=== PATIENT | female | born 1940 | race Caucasian/White ===

== ENCOUNTER → 2020-03-26 | Outpatient (CLI) | payer MEDICARE, OTHER ==
[2020-03-26 11:20] LABS: BASOPHILS ABSOLUTE AUTO 0.04 K/mm3 (0.00-0.23); BASOPHILS PERCENT AUTO 1 % (0-2); EOSINOPHILS ABSOLUTE AUTO 0.03 K/mm3 (0.00-0.68); EOSINOPHILS PERCENT AUTO 0 % (0-6); Hematocrit 43.5 % (33.0-51.0); Hemoglobin 14.5 g/dL (11.5-16.0); IMMATURE GRAN ABSOLUTE AUTO 0.02 K/mm3 (0.00-0.10); IMMATURE GRAN PERCENT AUTO 0 % (0-1); LYMPHOCYTES ABSOLUTE AUTO 1.34 K/mm3 (0.84-5.20); LYMPHOCYTES PERCENT AUTO 17 % (21-46); MONOCYTES ABSOLUTE AUTO 0.55 K/mm3 (0.16-1.47); MONOCYTES PERCENT AUTO 7 % (4-13); Mean Corpuscular HGB Conc 33.3 g/dL (31.5-36.5); Mean Corpuscular Volume 93 fL (80-100); Mean Platelet Volume 11.5 fL (9.1-12.4); NEUTROPHILS ABSOLUTE AUTO 5.91 K/mm3 (1.96-9.15); NEUTROPHILS PERCENT AUTO 75 % (41-73); Platelet Count 245 K/mm3 (150-400); RDW Coefficient Variation 13.2 % (11.7-14.2); RDW Standard Deviation 44.9 fL (35.1-46.3); Red Blood Cell Count 4.68 M/mm3 (3.80-5.20); White Blood Cell Count 7.89 K/mm3 (4.00-11.30)
[2020-03-26 11:33] LABS: Alanine Aminotransfer (ALT/SGP 11 U/L (12-78); Albumin, Blood 4.2 g/dL (3.4-5.0); Albumin/Globulin Ratio 1.3 (0.8-1.8); Alk Phos 80 U/L (40-126); Amylase, Blood 55 U/L (25-115); Anion Gap 13 mmol/L (6-16); Aspartate Aminotrans (AST/SGOT 14 U/L (12-37); Bilirubin, Total 0.7 mg/dL (0.1-1.0); Blood Urea Nitrogen 13 mg/dL (8-24); Bun/Creatinine Ratio 17.8 (12.0-20.0); CO2, Blood 23 mmol/L (21-32); Calcium, Blood 9.4 mg/dL (8.5-10.1); Chloride, Blood 105 mmol/L (98-108); Creatinine, Blood 0.73 mg/dL (0.40-1.00); Globulin, Blood 3.2 g/dL (2.2-4.0); Glomerular Filtration Rate >60 (60-); Glucose, Blood 106 mg/dL (70-99); Sodium, Blood 141 mmol/L (136-145); Total Protein, Blood 7.4 g/dL (6.4-8.2)
[2020-03-26 19:04] LABS: Adenovirus F 40/41 Not Detected (NOT DETECT); Astrovirus Not Detected (NOT DETECT); Campylobacter Sp Not Detected (NOT DETECT); Cryptosporidium Not Detected (NOT DETECT); Cyclospora Cayetanensis Not Detected (NOT DETECT); E. Coli O157 Not Detected (NOT DETECT); Entamoeba Histolytica Not Detected (NOT DETECT); Enteroaggregative E. coli-EAEC Not Detected (NOT DETECT); Enteropathogenic E. coli-EPEC Not Detected (NOT DETECT); Enterotoxigenic E. coli-ETEC Not Detected (NOT DETECT); Giardia Lamblia Not Detected (NOT DETECT); Norovirus GI/GII Not Detected (NOT DETECT); Plesiomonas Shigelloides Not Detected (NOT DETECT); Rotavirus A Not Detected (NOT DETECT); Salmonella Sp Not Detected (NOT DETECT); Sapovirus Not Detected (NOT DETECT); Shiga Toxin-prod E. coli-STEC Not Detected (NOT DETECT); Shigella/Enteroin E. coli-EIEC Not Detected (NOT DETECT); Vibrio Cholerae Not Detected (NOT DETECT); Vibrio Sp Not Detected (NOT DETECT); Yersinia Enterocolitica Not Detected (NOT DETECT)
== END | disposition home or self-care (01) ==
LOC: LAB EV 11:14 → LAB SHORT 11:14
PROVIDERS: General Practice
DX: R10.84 Generalized abdominal pain (principal)
CPT/HCPCS: 0097U; 80053; 82150; 83690; 85025

== ENCOUNTER 2020-04-03 19:35 | Inpatient (IN) | payer MEDICARE, OTHER ==
[~2020-04-03] VITALS: Ht 154.9 cm; Wt 42.3 kg
[2020-04-03 20:25] LABS: BASOPHILS ABSOLUTE AUTO 0.03 K/mm3 (0.00-0.23); BASOPHILS PERCENT AUTO 0 % (0-2); EOSINOPHILS ABSOLUTE AUTO 0.01 K/mm3 (0.00-0.68); EOSINOPHILS PERCENT AUTO 0 % (0-6); Hematocrit 46.9 % (33.0-51.0); Hemoglobin 15.6 g/dL (11.5-16.0); IMMATURE GRAN ABSOLUTE AUTO 0.04 K/mm3 (0.00-0.10); IMMATURE GRAN PERCENT AUTO 0 % (0-1); LYMPHOCYTES ABSOLUTE AUTO 1.41 K/mm3 (0.84-5.20); LYMPHOCYTES PERCENT AUTO 12 % (21-46); MONOCYTES ABSOLUTE AUTO 0.24 K/mm3 (0.16-1.47); MONOCYTES PERCENT AUTO 2 % (4-13); Mean Corpuscular HGB Conc 33.3 g/dL (31.5-36.5); Mean Corpuscular Volume 93 fL (80-100); NEUTROPHILS ABSOLUTE AUTO 9.94 K/mm3 (1.96-9.15); NEUTROPHILS PERCENT AUTO 85 % (41-73); Platelet Count 211 K/mm3 (150-400); RDW Coefficient Variation 13.2 % (11.7-14.2); RDW Standard Deviation 44.7 fL (35.1-46.3); Red Blood Cell Count 5.03 M/mm3 (3.80-5.20); White Blood Cell Count 11.67 K/mm3 (4.00-11.30)
[2020-04-03 20:44] LABS: Alanine Aminotransfer (ALT/SGP 19 U/L (12-78); Albumin, Blood 4.3 g/dL (3.4-5.0); Albumin/Globulin Ratio 1.1 (0.8-1.8); Alk Phos 82 U/L (50-136); Anion Gap 8 mmol/L (6-16); Aspartate Aminotrans (AST/SGOT 16 U/L (12-37); Bilirubin, Total 0.6 mg/dL (0.1-1.0); Blood Urea Nitrogen 16 mg/dL (8-24); Bun/Creatinine Ratio 31.3 (12.0-20.0); CO2, Blood 24 mmol/L (21-32); Calcium, Blood 9.8 mg/dL (8.5-10.1); Chloride, Blood 106 mmol/L (98-108); Creatinine, Blood 0.51 mg/dL (0.40-1.00); Globulin, Blood 3.8 g/dL (2.2-4.0); Glomerular Filtration Rate >60 (60-); Glucose, Blood 164 mg/dL (70-99); Potassium, Blood 3.8 mmol/L (3.5-5.5); Sodium, Blood 138 mmol/L (136-145); Total Protein, Blood 8.1 g/dL (6.4-8.2)
[2020-04-04 00:57] LABS: Source, Urine Clean Catch
[2020-04-04 01:05] LABS: Bilirubin, Urine Neg (Neg); Blood, Urine 1+ (Neg); Glucose Qualitative, Urine Neg (Neg); Ketones, Urine 3+ (Neg); Leukocyte Esterase, Urine Neg (Neg); Nitrite, Urine Neg (Neg); Protein, Urine 1+ (Neg); Urobilinogen, Urine NORM (Normal)
[2020-04-04 01:08] LABS: Appearance, Urine Clear (Clear); Color, Urine Yellow (P-Yellow)
[2020-04-04 01:13] LABS: Bacteria Few /hpf; Red Blood Cells, Urine 0-2 /hpf (0-2); Squamous Epithelial Cells Not Seen /hpf (Few); White Blood Cells, Urine 0-2 /hpf (0-5)
--- NOTE | 2020-04-04 07:30 | NUR ---
ASSUMED CARE: PT RESTING IN BED, AWAKE AND TALKING TO STAFF. NO ACUTE NEEDS OR CONCERNS AT THIS TIME.
[2020-04-04 08:09] LABS: BASOPHILS ABSOLUTE AUTO 0.02 K/mm3 (0.00-0.23); BASOPHILS PERCENT AUTO 0 % (0-2); EOSINOPHILS ABSOLUTE AUTO 0.03 K/mm3 (0.00-0.68); EOSINOPHILS PERCENT AUTO 0 % (0-6); Hematocrit 37.9 % (33.0-51.0); Hemoglobin 12.4 g/dL (11.5-16.0); IMMATURE GRAN ABSOLUTE AUTO 0.01 K/mm3 (0.00-0.10); IMMATURE GRAN PERCENT AUTO 0 % (0-1); LYMPHOCYTES ABSOLUTE AUTO 1.48 K/mm3 (0.84-5.20); LYMPHOCYTES PERCENT AUTO 21 % (21-46); MONOCYTES PERCENT AUTO 7 % (4-13); Mean Corpuscular HGB 30.9 pg (26.0-34.0); Mean Corpuscular HGB Conc 32.7 g/dL (31.5-36.5); Mean Corpuscular Volume 95 fL (80-100); Mean Platelet Volume 12.1 fL (9.1-12.4); NEUTROPHILS ABSOLUTE AUTO 5.15 K/mm3 (1.96-9.15); NEUTROPHILS PERCENT AUTO 72 % (41-73); Platelet Count 171 K/mm3 (150-400); RDW Coefficient Variation 13.1 % (11.7-14.2); RDW Standard Deviation 45.1 fL (35.1-46.3); Red Blood Cell Count 4.01 M/mm3 (3.80-5.20); White Blood Cell Count 7.19 K/mm3 (4.00-11.30)
[2020-04-04 08:19] LABS: Anion Gap 5 mmol/L (6-16); Blood Urea Nitrogen 13 mg/dL (8-24); Bun/Creatinine Ratio 25.3 (12.0-20.0); CO2, Blood 24 mmol/L (21-32); Calcium, Blood 8.2 mg/dL (8.5-10.1); Chloride, Blood 112 mmol/L (98-108); Creatinine, Blood 0.51 mg/dL (0.40-1.00); Glomerular Filtration Rate >60 (60-); Glucose, Blood 84 mg/dL (70-99); Potassium, Blood 3.6 mmol/L (3.5-5.5); Sodium, Blood 141 mmol/L (136-145)
--- NOTE | 2020-04-04 12:39 | NUR ---
PT TAKEN TO IMAGING VIA WHEELCHAIR
--- NOTE | 2020-04-04 18:17 | NUR ---
SHIFT SUMMARY: PT'S XRAY COMPLETED. AWAITING REVIEW FROM DR FLEMING TO DETERMINE FURTHER PLANS. PT INDEPENDENT IN ROOM. IV FLUIDS AND IV ABX. DENIES PAIN OR CONCERNS. NO FURTHER CHANGES OR NEEDS AT THIS TIME.
--- NOTE | 2020-04-05 04:21 | NUR ---
SHIFT SUMMARY ADMITTED FOR SBO, FOUND TO HAVE ENTEROCOLITIS. DNR CODE. PLAN IS TO CONTINUE NPO, GIVE IV FLUIDS. SURGICAL CONSULT IS DR BARCLAY. NS IS INFUSING @ 100 ML/HR. GI CONSULT MAY BE CALLED S/SX HAVE BEEN PRESENT FOR 5 WEEKS. NO NEW CONCERNS THIS SHIFT
--- NOTE | 2020-04-05 17:05 | NUR ---
PT HAS BEEN MOVED TO DIET TOLERATED. TAKING IN SOFT FOOD WELL. ABX GIVEN PER EMAR. NO ACUTE CHANGES.
--- NOTE | 2020-04-06 04:53 | NUR ---
SHIFT SUMMARY ADMITTED FOR POSSIBLE SBO, FOUND TO HAVE POSSIBLE VIRAL GASTROENTERITIS. DNR CODE. SHE IS HOPEFUL FOR DC TODAY. IV FLUIDS HAVE BEEN DC'D THIS SHIFT. SHE HAS TOLERATED THE SOFT BITE SIZE DIET WELL. DR FLEMING IS SURGICAL CONSULT, AND HE DOES NOT RECOMMEND SURGERY. THE PT IS HAVING BM'S. THE PT STATES SHE FEELS MUCH IMPROVED. NO NEW CONCERNS THIS SHIFT.
--- NOTE | 2020-04-06 11:48 | NUR ---
1148 NURSE DISCUSSED DISCHARGE PLAN WITH PATIENT. NO NEW MEDICATIONS LISTED, PT ENCOURAGED TO FOLLOW UP WITH PCP. IV DC WITH NO S/S OF INFECTION NOTED. PT WAITING TO LEAVE UNTIL AFTER LUNCH. IS TO PICK HER UP AND TAKE HER HOME. PT DRESSED HERSELF.
== END 2020-04-06 13:37 | disposition home or self-care (01) | DRG 390 ==
LOC: ER 19:35 → MEDS 19:36
PROVIDERS: Physician Assistant; ADMIT Family Medicine
DX: K56.600 Partial intestinal obstruction, unspecified as to cause (principal); K52.9 Noninfective gastroenteritis and colitis, unspecified; Z66 Do not resuscitate
CPT/HCPCS: 36415; 74177; 74250; 80048; 80053; 81001; 83690; 85025; 93005; 93010; 96361; 96374-59; 99285-25; C9113; J0696; J1650; J2405; J7030; Q9967; U0002

== ENCOUNTER → 2020-04-13 | Outpatient (CLI) | payer MEDICARE, OTHER ==
[~2020-04-13] MED LIST: ALMACONE SUSPE355 ML PO; Bentyl20 MG PO; CARAFATE1 GM PO; HYOS.125 PO; ONDA4ODT MM; PROM25 PO; Percocet 5-3251 EACH PO; Protonix40 MG PO; SIME80CH PO; SUCR1 PO
== END ==
LOC: LAB SHORT 10:00 → LAB 10:00
DX: K29.70 Gastritis, unspecified, without bleeding (principal); R10.13 Epigastric pain
CPT/HCPCS: 87338

== ENCOUNTER 2020-04-16 16:13 | Emergency (ER) | payer MEDICARE, OTHER ==
[~2020-04-16] VITALS: Ht 152.4 cm; Wt 40.8 kg
[~2020-04-16 16:13] MED LIST changes: -Bentyl20 MG PO; -CARAFATE1 GM PO; -HYOS.125 PO; -PROM25 PO; -Percocet 5-3251 EACH PO; -SIME80CH PO; -SUCR1 PO
[2020-04-16 17:27] LABS: Source, Urine Clean Catch
[2020-04-16 17:29] LABS: Bilirubin, Urine Neg (Neg); Blood, Urine Neg (Neg); Glucose Qualitative, Urine Neg (Neg); Ketones, Urine Neg (Neg); Leukocyte Esterase, Urine Neg (Neg); Nitrite, Urine Neg (Neg); Protein, Urine Neg (Neg); Urobilinogen, Urine NORM (Normal)
[2020-04-16 17:31] LABS: Appearance, Urine Clear (Clear); Color, Urine Yellow (P-Yellow)
[2020-04-16 17:40] LABS: BASOPHILS ABSOLUTE AUTO 0.04 K/mm3 (0.00-0.23); BASOPHILS PERCENT AUTO 1 % (0-2); EOSINOPHILS ABSOLUTE AUTO 0.06 K/mm3 (0.00-0.68); EOSINOPHILS PERCENT AUTO 1 % (0-6); Hematocrit 41.2 % (33.0-51.0); Hemoglobin 13.7 g/dL (11.5-16.0); IMMATURE GRAN PERCENT AUTO 0 % (0-1); LYMPHOCYTES PERCENT AUTO 24 % (21-46); MONOCYTES ABSOLUTE AUTO 0.61 K/mm3 (0.16-1.47); MONOCYTES PERCENT AUTO 9 % (4-13); Mean Corpuscular HGB Conc 33.3 g/dL (31.5-36.5); Mean Corpuscular Volume 93 fL (80-100); Mean Platelet Volume 10.7 fL (9.1-12.4); NEUTROPHILS ABSOLUTE AUTO 4.47 K/mm3 (1.96-9.15); NEUTROPHILS PERCENT AUTO 66 % (41-73); Platelet Count 276 K/mm3 (150-400); RDW Coefficient Variation 13.4 % (11.7-14.2); RDW Standard Deviation 46.5 fL (35.1-46.3); Red Blood Cell Count 4.42 M/mm3 (3.80-5.20); White Blood Cell Count 6.78 K/mm3 (4.00-11.30)
[2020-04-16 18:01] LABS: Alanine Aminotransfer (ALT/SGP 27 U/L (12-78); Albumin, Blood 3.8 g/dL (3.4-5.0); Albumin/Globulin Ratio 1.1 (0.8-1.8); Alk Phos 74 U/L (50-136); Anion Gap 5 mmol/L (6-16); Aspartate Aminotrans (AST/SGOT 15 U/L (12-37); Bilirubin, Total 0.5 mg/dL (0.1-1.0); Blood Urea Nitrogen 25 mg/dL (8-24); Bun/Creatinine Ratio 47.6 (12.0-20.0); CO2, Blood 27 mmol/L (21-32); Calcium, Blood 9.6 mg/dL (8.5-10.1); Chloride, Blood 106 mmol/L (98-108); Creatinine, Blood 0.53 mg/dL (0.40-1.00); Globulin, Blood 3.5 g/dL (2.2-4.0); Glomerular Filtration Rate >60 (60-); Glucose, Blood 106 mg/dL (70-99); Potassium, Blood 4.3 mmol/L (3.5-5.5); Sodium, Blood 138 mmol/L (136-145); Total Protein, Blood 7.3 g/dL (6.4-8.2); Troponin I <0.015 ng/mL (0.000-0.040)
[2020-04-16] MEDS ORDERED: HYOS.125 PO (18:53)
== END 2020-04-16 19:20 | disposition home or self-care (01) ==
LOC: ER 16:13
PROVIDERS: Physician Assistant
DX: R25.2 Cramp and spasm (principal)
CPT/HCPCS: 36415; 80053; 81003; 83690; 84484; 85025; 93005; 93010; 99284

== ENCOUNTER 2020-04-27 16:38 | Emergency (ER) | payer MEDICARE, OTHER ==
[~2020-04-27] VITALS: Ht 154.9 cm; Wt 40.8 kg
[~2020-04-27 16:38] MED LIST changes: +HYOS.125 PO
[2020-04-27 18:00] LABS: BASOPHILS ABSOLUTE AUTO 0.02 K/mm3 (0.00-0.23); BASOPHILS PERCENT AUTO 0 % (0-2); EOSINOPHILS ABSOLUTE AUTO 0.06 K/mm3 (0.00-0.68); EOSINOPHILS PERCENT AUTO 1 % (0-6); Hematocrit 44.7 % (33.0-51.0); Hemoglobin 14.9 g/dL (11.5-16.0); IMMATURE GRAN ABSOLUTE AUTO 0.02 K/mm3 (0.00-0.10); IMMATURE GRAN PERCENT AUTO 0 % (0-1); LYMPHOCYTES ABSOLUTE AUTO 1.37 K/mm3 (0.84-5.20); LYMPHOCYTES PERCENT AUTO 17 % (21-46); MONOCYTES ABSOLUTE AUTO 0.73 K/mm3 (0.16-1.47); MONOCYTES PERCENT AUTO 9 % (4-13); Mean Corpuscular HGB 30.9 pg (26.0-34.0); Mean Corpuscular HGB Conc 33.3 g/dL (31.5-36.5); Mean Corpuscular Volume 93 fL (80-100); Mean Platelet Volume 11.6 fL (9.1-12.4); NEUTROPHILS ABSOLUTE AUTO 5.82 K/mm3 (1.96-9.15); NEUTROPHILS PERCENT AUTO 73 % (41-73); Platelet Count 266 K/mm3 (150-400); RDW Coefficient Variation 13.5 % (11.7-14.2); RDW Standard Deviation 46.5 fL (35.1-46.3); Red Blood Cell Count 4.82 M/mm3 (3.80-5.20); White Blood Cell Count 8.02 K/mm3 (4.00-11.30)
[2020-04-27 18:31] LABS: Alanine Aminotransfer (ALT/SGP 21 U/L (12-78); Albumin, Blood 3.8 g/dL (3.4-5.0); Alk Phos 89 U/L (50-136); Anion Gap 7 mmol/L (6-16); Aspartate Aminotrans (AST/SGOT 25 U/L (12-37); Bilirubin, Total 0.6 mg/dL (0.1-1.0); Blood Urea Nitrogen 15 mg/dL (8-24); Bun/Creatinine Ratio 28.5 (12.0-20.0); CO2, Blood 25 mmol/L (21-32); Chloride, Blood 107 mmol/L (98-108); Creatinine, Blood 0.53 mg/dL (0.40-1.00); Globulin, Blood 3.9 g/dL (2.2-4.0); Glomerular Filtration Rate >60 (60-); Glucose, Blood 130 mg/dL (70-99); Potassium, Blood 4.7 mmol/L (3.5-5.5); Sodium, Blood 139 mmol/L (136-145); Total Protein, Blood 7.7 g/dL (6.4-8.2)
[2020-04-27] MEDS ORDERED: SUCR1 PO (20:22)
[2020-04-27] MEDS ORDERED: Percocet 5-3251 EACH PO ×2 (22:13→22:15)
[2020-04-27] MEDS ORDERED: PROM25 PO (22:13)
[2020-04-28] MEDS ORDERED: Bentyl20 MG PO (20:10)
[2020-04-28] MEDS ORDERED: PROM25 PO (20:53)
[2020-04-28] MEDS ORDERED: CARAFATE1 GM PO (20:54)
[2020-04-28] MEDS ORDERED: SIME80CH PO (20:54)
== END 2020-04-27 22:27 | disposition home or self-care (01) ==
LOC: ER 16:38
PROVIDERS: Physician Assistant
DX: R10.9 Unspecified abdominal pain (principal); R11.2 Nausea with vomiting, unspecified; Z79.899 Other long term (current) drug therapy
CPT/HCPCS: 36415; 80053; 83690; 85025; 93005; 93010; 96374; 96375; 99284-25; J1170; J2405; J2550

== ENCOUNTER 2020-04-28 15:37 | Emergency (ER) | payer MEDICARE, OTHER ==
[~2020-04-28] VITALS: Ht 154.9 cm; Wt 40.8 kg
[~2020-04-28 15:37] MED LIST changes: +PROM25 PO; +Percocet 5-3251 EACH PO; +SUCR1 PO
[2020-04-28 16:21] LABS: BASOPHILS ABSOLUTE AUTO 0.04 K/mm3 (0.00-0.23); BASOPHILS PERCENT AUTO 1 % (0-2); EOSINOPHILS ABSOLUTE AUTO 0.05 K/mm3 (0.00-0.68); EOSINOPHILS PERCENT AUTO 1 % (0-6); Hemoglobin 14.2 g/dL (11.5-16.0); IMMATURE GRAN ABSOLUTE AUTO 0.01 K/mm3 (0.00-0.10); IMMATURE GRAN PERCENT AUTO 0 % (0-1); LYMPHOCYTES ABSOLUTE AUTO 1.88 K/mm3 (0.84-5.20); LYMPHOCYTES PERCENT AUTO 23 % (21-46); MONOCYTES ABSOLUTE AUTO 0.78 K/mm3 (0.16-1.47); MONOCYTES PERCENT AUTO 10 % (4-13); Mean Corpuscular HGB 30.9 pg (26.0-34.0); Mean Corpuscular Volume 94 fL (80-100); Mean Platelet Volume 11.4 fL (9.1-12.4); NEUTROPHILS ABSOLUTE AUTO 5.32 K/mm3 (1.96-9.15); NEUTROPHILS PERCENT AUTO 66 % (41-73); Platelet Count 245 K/mm3 (150-400); RDW Coefficient Variation 13.6 % (11.7-14.2); RDW Standard Deviation 46.3 fL (35.1-46.3); White Blood Cell Count 8.08 K/mm3 (4.00-11.30)
[2020-04-28 16:27] LABS: Alanine Aminotransfer (ALT/SGP 17 U/L (12-78); Albumin, Blood 3.5 g/dL (3.4-5.0); Alk Phos 85 U/L (50-136); Anion Gap 7 mmol/L (6-16); Aspartate Aminotrans (AST/SGOT 22 U/L (12-37); Bilirubin, Total 0.6 mg/dL (0.1-1.0); Blood Urea Nitrogen 17 mg/dL (8-24); Bun/Creatinine Ratio 28.6 (12.0-20.0); CO2, Blood 26 mmol/L (21-32); Calcium, Blood 9.5 mg/dL (8.5-10.1); Chloride, Blood 104 mmol/L (98-108); Globulin, Blood 3.5 g/dL (2.2-4.0); Glomerular Filtration Rate >60 (60-); Glucose, Blood 110 mg/dL (70-99); Potassium, Blood 4.2 mmol/L (3.5-5.5); Sodium, Blood 137 mmol/L (136-145)
[2020-04-28] MEDS ORDERED: Bentyl20 MG PO (20:10)
[2020-04-28] MEDS ORDERED: PROM25 PO (20:53)
[2020-04-28] MEDS ORDERED: CARAFATE1 GM PO (20:54)
[2020-04-28] MEDS ORDERED: SIME80CH PO (20:54)
== END 2020-04-28 22:36 | disposition home or self-care (01) ==
LOC: ER 15:37
PROVIDERS: Emergency Medicine
DX: R10.33 Periumbilical pain (principal); R11.2 Nausea with vomiting, unspecified; M54.5 Low back pain; R10.815 Periumbilic abdominal tenderness; Z79.899 Other long term (current) drug therapy
CPT/HCPCS: 74018; 80053; 83605; 83690; 85025; 96361; 96374; 99284-25; J0500; J2405; J7120

== ENCOUNTER 2020-05-03 11:45 | Observation (INO) | payer MEDICARE, OTHER ==
[~2020-05-03] VITALS: Ht 154.9 cm; Wt 41.2 kg
[~2020-05-03 11:45] MED LIST changes: +Bentyl20 MG PO; +CARAFATE1 GM PO; +SIME80CH PO
--- NOTE | 2020-05-03 12:06 | NUR ---
1200 PT ARRIVED TO MEDICAL FLOOR VIA W/C ACCOMPANIED BY .
[2020-05-03 13:15] LABS: BASOPHILS ABSOLUTE AUTO 0.04 K/mm3 (0.00-0.23); BASOPHILS PERCENT AUTO 1 % (0-2); EOSINOPHILS ABSOLUTE AUTO 0.04 K/mm3 (0.00-0.68); EOSINOPHILS PERCENT AUTO 1 % (0-6); Hematocrit 48.1 % (33.0-51.0); Hemoglobin 15.6 g/dL (11.5-16.0); IMMATURE GRAN ABSOLUTE AUTO 0.02 K/mm3 (0.00-0.10); IMMATURE GRAN PERCENT AUTO 0 % (0-1); LYMPHOCYTES ABSOLUTE AUTO 1.33 K/mm3 (0.84-5.20); LYMPHOCYTES PERCENT AUTO 17 % (21-46); MONOCYTES ABSOLUTE AUTO 0.66 K/mm3 (0.16-1.47); MONOCYTES PERCENT AUTO 8 % (4-13); Mean Corpuscular HGB 30.9 pg (26.0-34.0); Mean Corpuscular HGB Conc 32.4 g/dL (31.5-36.5); Mean Corpuscular Volume 95 fL (80-100); Mean Platelet Volume 11.4 fL (9.1-12.4); NEUTROPHILS ABSOLUTE AUTO 5.79 K/mm3 (1.96-9.15); NEUTROPHILS PERCENT AUTO 73 % (41-73); Platelet Count 232 K/mm3 (150-400); RDW Coefficient Variation 13.6 % (11.7-14.2); RDW Standard Deviation 48.3 fL (35.1-46.3); Red Blood Cell Count 5.05 M/mm3 (3.80-5.20); White Blood Cell Count 7.88 K/mm3 (4.00-11.30)
[2020-05-03 13:32] LABS: Alanine Aminotransfer (ALT/SGP 16 U/L (12-78); Albumin, Blood 4.1 g/dL (3.4-5.0); Alk Phos 98 U/L (50-136); Anion Gap 8 mmol/L (6-16); Aspartate Aminotrans (AST/SGOT 17 U/L (12-37); Bilirubin, Direct 0.1 mg/dL (0.0-0.3); Bilirubin, Indirect 0.6 mg/dL (0.1-0.7); Bilirubin, Total 0.7 mg/dL (0.1-1.0); Blood Urea Nitrogen 10 mg/dL (8-24); Bun/Creatinine Ratio 14.5 (12.0-20.0); CO2, Blood 27 mmol/L (21-32); Calcium, Blood 10.2 mg/dL (8.5-10.1); Chloride, Blood 105 mmol/L (98-108); Creatinine, Blood 0.69 mg/dL (0.40-1.00); Globulin, Blood 4.3 g/dL (2.2-4.0); Glomerular Filtration Rate >60 (60-); Glucose, Blood 96 mg/dL (70-99); Potassium, Blood 3.7 mmol/L (3.5-5.5); Sodium, Blood 140 mmol/L (136-145); Total Protein, Blood 8.4 g/dL (6.4-8.2)
[2020-05-03] MEDS ORDERED: PANT40 PO (15:47)
[2020-05-03] MEDS ORDERED: ONDA8 PO (15:47)
[2020-05-03] MEDS ORDERED: HYOS.125 PO (15:47)
[2020-05-03] MEDS ORDERED: SUCR1 PO (15:48)
[2020-05-03] MEDS ORDERED: ALIGN PO (15:49)
[2020-05-03] MEDS ORDERED: PROM25 PO (15:50)
[2020-05-03] MEDS ORDERED: Percocet 5-3251 EACH PO (15:50)
--- NOTE | 2020-05-03 18:28 | NUR ---
SHIFT SUMMARY. DIRECT ADMIT TODAY. PT WITH ABD PAIN AND NAUSEA. PT BECAME MORE NAUSEUS AND PAINFUL IMMEDIATLY FOLLOWING TAKING ONE SIP OF WATER TO SWALLOW A SMALL TABLET OF ZOFRAN. PRN NORCO GIVEN SHORTLY AFTERWARD AND PT REPORTED RELIEF. AT BEDSIDE INTERMITTENTLY DURING SHIFT. CTA ABD COMPLETED THIS AFTERNOON. NO OTHER CHANGES OR CONCERNS.
--- NOTE | 2020-05-03 19:20 | NUR ---
ASSUMED CARE RECEIVED REPORT FROM VU LENNON. ASSUMED CARE OF PT. RESTING COMFORTABLY AT THIS TIME, NO S/S ACUTE DISTRESS NOTED. DENIES NEEDS, OR PAIN AT THIS TIME. CALL LIGHT, POSSESSIONS IN REACH. CONTINUE TO MONITOR.
[2020-05-04 04:28] LABS: BASOPHILS ABSOLUTE AUTO 0.04 K/mm3 (0.00-0.23); BASOPHILS PERCENT AUTO 1 % (0-2); EOSINOPHILS ABSOLUTE AUTO 0.15 K/mm3 (0.00-0.68); EOSINOPHILS PERCENT AUTO 2 % (0-6); Hematocrit 42.1 % (33.0-51.0); Hemoglobin 13.3 g/dL (11.5-16.0); IMMATURE GRAN ABSOLUTE AUTO 0.01 K/mm3 (0.00-0.10); IMMATURE GRAN PERCENT AUTO 0 % (0-1); LYMPHOCYTES ABSOLUTE AUTO 0.91 K/mm3 (0.84-5.20); LYMPHOCYTES PERCENT AUTO 14 % (21-46); MONOCYTES ABSOLUTE AUTO 0.73 K/mm3 (0.16-1.47); MONOCYTES PERCENT AUTO 11 % (4-13); Mean Corpuscular HGB 30.4 pg (26.0-34.0); Mean Corpuscular HGB Conc 31.6 g/dL (31.5-36.5); Mean Corpuscular Volume 96 fL (80-100); Mean Platelet Volume 11.4 fL (9.1-12.4); NEUTROPHILS PERCENT AUTO 72 % (41-73); Platelet Count 199 K/mm3 (150-400); RDW Coefficient Variation 13.6 % (11.7-14.2); RDW Standard Deviation 49.1 fL (35.1-46.3); Red Blood Cell Count 4.37 M/mm3 (3.80-5.20); White Blood Cell Count 6.44 K/mm3 (4.00-11.30)
[2020-05-04 04:48] LABS: Anion Gap 7 mmol/L (6-16); Blood Urea Nitrogen 7 mg/dL (8-24); Bun/Creatinine Ratio 12.8 (12.0-20.0); CO2, Blood 25 mmol/L (21-32); Calcium, Blood 8.5 mg/dL (8.5-10.1); Chloride, Blood 108 mmol/L (98-108); Creatinine, Blood 0.55 mg/dL (0.40-1.00); Glomerular Filtration Rate >60 (60-); Glucose, Blood 106 mg/dL (70-99); Potassium, Blood 3.4 mmol/L (3.5-5.5); Sodium, Blood 140 mmol/L (136-145)
--- NOTE | 2020-05-04 07:59 | NUR ---
SHIFT SUMMARY PT HAS HAD AN UNEVENTFUL NIGHT. SLEPT T/O. MEDICATED FOR PAIN AND NAUSEA PER EMAR, NO C/O ABD CRAMPING T/O NIGHT. PT APPEARS COMFORTABLE. GI CONSULT PENDING. PT DENIES NEEDS AT THIS TIME. CALL LIGHT, POSSESSIONS IN REACH. REPORT GIVEN TO CITLALLI DOTSON.
[2020-05-04] MEDS ORDERED: Bentyl20 MG PO (10:50)
--- NOTE | 2020-05-04 12:36 | NUR ---
PT CHANGED TO DNR PER DR SCOTT THAT MATCHES POLST THAT IS IN FRONT OF CHART. DNR CODE STATUS VERIFIED WITH CITLALLI ROBERSON AND PLACED TO LEFT WRIST.
--- NOTE | 2020-05-04 17:41 | NUR ---
SHIFT SUMMARY- PT A/OX4, INDEP UP IN ROOM. PT REPORTS ABD PAIN, INCREASES WITH PALPATION. PT REPORTS LEFT GREATER THAN THE RIGHT. HT HYPERACTIVE. PT REPORTS NAUSEA T/O THE DAY BUT NO EMESIS. PRN PO ZOFRAN AND PO PHENERGAN GIVEN, PT REPORTS PHENERGAN MORE EFFECTIVE. PT REPORTS NO APPETITE AND HAS BEEN THAT WAY FOR APROX 1.5 WEEKS, STATES SHE GETS ABD PAIN AND NAUSEATED WITH EATING OR DRINKING. PT DID STATE THIS EVENING SHE WOULD BE OPEN TO TRYING SOME LIQUIDS. RAINA DEVINE ON RA, TELE SR AT 70. DR FISCHER CALLED AND WILL BE IN THIS EVENING TO CONSULT PT. NO OTHER ACUTE CHANGES THIS SHIFT.
[2020-05-05 04:50] LABS: BASOPHILS ABSOLUTE AUTO 0.02 K/mm3 (0.00-0.23); BASOPHILS PERCENT AUTO 0 % (0-2); EOSINOPHILS PERCENT AUTO 4 % (0-6); Hematocrit 40.5 % (33.0-51.0); IMMATURE GRAN ABSOLUTE AUTO 0.01 K/mm3 (0.00-0.10); IMMATURE GRAN PERCENT AUTO 0 % (0-1); LYMPHOCYTES ABSOLUTE AUTO 0.83 K/mm3 (0.84-5.20); LYMPHOCYTES PERCENT AUTO 16 % (21-46); MONOCYTES ABSOLUTE AUTO 0.63 K/mm3 (0.16-1.47); MONOCYTES PERCENT AUTO 12 % (4-13); Mean Corpuscular HGB 30.4 pg (26.0-34.0); Mean Corpuscular HGB Conc 32.1 g/dL (31.5-36.5); Mean Corpuscular Volume 95 fL (80-100); Mean Platelet Volume 11.1 fL (9.1-12.4); NEUTROPHILS ABSOLUTE AUTO 3.47 K/mm3 (1.96-9.15); NEUTROPHILS PERCENT AUTO 67 % (41-73); Platelet Count 201 K/mm3 (150-400); RDW Coefficient Variation 13.6 % (11.7-14.2); RDW Standard Deviation 47.8 fL (35.1-46.3); Red Blood Cell Count 4.28 M/mm3 (3.80-5.20); White Blood Cell Count 5.16 K/mm3 (4.00-11.30)
[2020-05-05 05:12] LABS: Anion Gap 5 mmol/L (6-16); Blood Urea Nitrogen 4 mg/dL (8-24); CO2, Blood 27 mmol/L (21-32); Calcium, Blood 8.7 mg/dL (8.5-10.1); Chloride, Blood 110 mmol/L (98-108); Glomerular Filtration Rate >60 (60-); Glucose, Blood 110 mg/dL (70-99); Potassium, Blood 3.4 mmol/L (3.5-5.5); Sodium, Blood 142 mmol/L (136-145)
--- NOTE | 2020-05-05 06:14 | NUR ---
Rn summary: Pt is alert and oriented. Pt states she has rested well tonight. Pt is up independantly to the BR. She does become nausiated even just drinking a little water with one pill. No emisis. Pt was medicated x3 for nausia during the shift. Pt abdomen is flat, bowel tones present. Plan is for endoscopy this evening with Dr. Johnson. Call light is in reach.
--- NOTE | 2020-05-05 12:22 | NUR ---
PT TO DAY SURGERY FOR EGD.
--- NOTE | 2020-05-05 12:43 | NUR ---
INTO SDS VIA GURNEY FROM [facility] ROOM. A&O X4. History, Chart, Medications and Allergies reviewed before start of procedure.Patient confirms NPO status and agrees with scheduled surgery. Lungs clear T/O to Auscultation.
--- NOTE | 2020-05-05 12:52 | NUR ---
05/05/20 1252 Luisito Prasad PATIENT DETERMINED TO BE ASA APPROPRIATE FOR PROPOFOL SEDATION PRIOR TO START OF PROCEDURE BY DR. Jared Booker Placed3-LEAD EKG REVIEWED WITH PHYSICIAN PRIOR TO START OF PROCEDURE.Patient to ENDO 1. MONITOR INTACT WITH CONTINUOUS PULSE OXIMETRY AND INTERMITTENT BP.O2 VIA N/C INTACT THROUGHOUT SEDATION/PROCEDURE.
--- NOTE | 2020-05-05 14:45 | NUR ---
PT ARRIVED BACK TO ROOM FROM DAY SURGERY AT APROX 1330. PT TRANSFERED INTO BED INDEP. PT REPORTS MID ABD DISCOMFORT BUT NO OTHER COMPLAINTS. PER DAY SURGERY NURSE EGD NORMAL, PLAN FOR COLONOSCOPY TOMORROW. DOBHOFF TO BE PLACED THIS EVENING FOR GOLYTELY PER DR FISCHER.
--- NOTE | 2020-05-05 16:44 | NUR ---
SHIFT SUMMARY- PT A/OX4, INDEP UP IN ROOM. PT REPORTS MILD ABD PAIN THAT INCREASES WITH PALPATION. MINIMAL NAUSEA TODAY, PT DENIED NEED FOR ANTIEMETICS TODAY. EGD COMPLETED. PLAN FOR COLONOSCOPY TOMORROW. DOBHOFF PLACED FOR GOLYTELY ADMINISTRATION PER DR FISCHER, AWAITING CONFIRMATION OF XRAY AT THIS TIME. LS CLEAR, ON RA. TELE SR AT 77. PT SLIGHTLY ANXIOUS AT TIMES. STATES SHE IS NERVOUS TO TRY ANYTHING ORALLY, STATES SHE HAS BEEN ONLY TAKING IN ENSURES AT HOME FOR THE PAST 1-2 WEEKS. PT TO BE NPO AT 0700. NO OTHER ACUTE CHANGES THIS SHIFT.
--- NOTE | 2020-05-05 16:44 | NUR ---
DOBHOFF PLACED, PT TOLERATED WELL. 1 VIEW CHEST XRAY COMPLETED AND AWAITING CONFIRMATION OF PLACEMENT.
--- NOTE | 2020-05-05 16:49 | NUR ---
AGA FROM IMAGING CALLED AND REPORTED DR TANNER STATES THE TIP OF DOBHOFF IS IN THE STOMACH. WILL START GOLYTELY AT 1800.
--- NOTE | 2020-05-05 17:07 | NUR ---
GUIDE WIRE REMOVED FROM DOBHOFF.
--- NOTE | 2020-05-05 17:43 | NUR ---
ELINOR YUNG CAME UP TO THE FLOOR AND REPORTS THE RADIOLOGIST WANTED US TO CONFIRM WITH DR FISCHER FOR PLACEMENT OF DOBHOFF. SPOKE WITH DR FISCHER WHO WILL LOOK OVER IMAGING AND CALL BACK TON CONFIRM.
--- NOTE | 2020-05-05 18:27 | NUR ---
PER DR AMADO EDMONDS IN CORRECT LOCATION, OK TO START PREP.
--- NOTE | 2020-05-06 04:53 | NUR ---
OVEN HEATER SUMMARY PT AAOX4 AND PLEASANT. INDEPENDENT TO BSC. PT STARTED ON BOWEL PREP JUST BEFORE START OF SHIFT. PT FINISHED 4L OF GOLYTELY VIA FELIPA WITH NO ISSUES, TOLERATED WELL. PT STOOL STILL LIGHT BROWN WITH SOME SMALL SOLID BITS IN IT. SPOKE WITH DR FISCHER WHO SAID TO START GOLYTELY AGAIN AT 0500 IF PT'S STOOL NOT CLEAR BY THEN. PT TO HAVE COLONOSCOPY LATER TODAY. VSS, WILL CONTINUE TO MONITOR.
--- NOTE | 2020-05-06 11:26 | NUR ---
05/06/20 1126 Cristy Rolon History, Chart, Medications and Allergies reviewed before start of procedure.PATIENT DETERMINED TO BE ASA APPROPRIATE FOR PROPOFOL SEDATION PRIOR TO START OF PROCEDURE BY .MONITOR INTACT WITH CONTINUOUS PULSE OXIMETRY AND INTERMITTENT BP.3-LEAD EKG REVIEWED WITH PHYSICIAN PRIOR TO START OF PROCEDURE.O2 VIA N/C INTACT THROUGHOUT SEDATION/PROCEDURE.
--- NOTE | 2020-05-06 17:21 | NUR ---
PATIENT IS ALERT AND ORIENTED AND COOPERATIVE WITH CARE. PATIENT IS INDEPENDENT TO THE BATHROOM. PATIENT HAD A COLONOSCOPY TODAY, WHICH WAS NORMAL. THE PATIENT'S IS AT THE BEDSIDE AT THIS TIME. THE DOBHOFF WAS PULLED BY DR. FISCHER IN THE OR. PATIENT IS TOLERATING THE FULL LIQUID DIET AT THIS TIME, NO COMPLAINTS OF NAUSEA OR ABDOMINAL PAIN. WILL CONTINUE TO MONITOR.
--- NOTE | 2020-05-07 06:02 | NUR ---
PADDED PRODUCTS FINISHER SUMMARY ALERT AND ORIENTED. INDEPENDENT IN ROOM. APPEARED TO SLEEP MOST OF SHIFT. DENIES PAIN OR N/V. NO ACUTE CHANGES AT THIS TIME. BED IN LOWEST POSITION WITH CALL LIGHT IN REACH. WILL CONTINUE TO MONITOR AND REPORT TO ONCOMING RN.
--- NOTE | 2020-05-07 14:11 | NUR ---
PT AWAKE AT START OF SHIFT, PLEASANT AND CO-OP. NO C/O. ADMITTED FOR ABD PAIN AND NAUSEA. PER SHIFT REPORT, POSSIBLY R/T CONSTIPATION. SCOPE DONE YESTERDAY. PER REPORT, PT CLEAR FOR D/C PER DR FISCHER. PT FEELING BETTER AFTER BOWEL PREP. NO FURTHER C/O. PT UP WALKING HALLS ALL MORNING UNTIL DR ARANDA HERE TO SEE HER. PT WANTING TO GO HOME. D/C ORDERS PLACED. NO NEW MEDICATIONS ORDERS. PT VERBALIZED UNDERSTANDING. PT CALLED TO COME AND PICK HER UP. IV SITE D/C'D WNL'S.
== END 2020-05-07 14:03 | disposition home or self-care (01) ==
LOC: MEDS 11:45
PROVIDERS: Internal Medicine Gastroenterology; ADMIT Internal Medicine
PROC: 0DBP8ZZ Excision of Rectum, Via Natural or Artificial Opening Endoscopic (ICD-10-PCS; principal; 2020-05-05 13:00)
PROC: 0DB98ZZ Excision of Duodenum, Via Natural or Artificial Opening Endoscopic (ICD-10-PCS; principal; 2020-05-05 13:00)
PROC: 0DB68ZZ Excision of Stomach, Via Natural or Artificial Opening Endoscopic (ICD-10-PCS; principal; 2020-05-05 13:00)
DX: K29.50 Unspecified chronic gastritis without bleeding (principal); D12.8 Benign neoplasm of rectum; K29.80 Duodenitis without bleeding; Z20.828 Contact with and (suspected) exposure to other viral communicable diseases; K57.30 Diverticulosis of large intestine without perforation or abscess without bleeding
CPT/HCPCS: 36415; 71045; 74174; 80048; 80076; 83605; 83690; 85025; 88305; 88342; A9270-GY; G0378; J1650; J2704; J7042; J7120; Q9967; U0003

== ENCOUNTER → 2020-05-20 | Outpatient (CLI) | payer MEDICARE, OTHER ==
[~2020-05-20] MED LIST changes: +ALIGN PO; +ONDA8 PO; +PANT40 PO
[2020-05-20 16:24] LABS: BASOPHILS ABSOLUTE AUTO 0.03 K/mm3 (0.00-0.23); BASOPHILS PERCENT AUTO 1 % (0-2); EOSINOPHILS ABSOLUTE AUTO 0.08 K/mm3 (0.00-0.68); EOSINOPHILS PERCENT AUTO 1 % (0-6); Hematocrit 42.2 % (33.0-51.0); Hemoglobin 14.1 g/dL (11.5-16.0); IMMATURE GRAN ABSOLUTE AUTO 0.01 K/mm3 (0.00-0.10); IMMATURE GRAN PERCENT AUTO 0 % (0-1); LYMPHOCYTES ABSOLUTE AUTO 1.68 K/mm3 (0.84-5.20); LYMPHOCYTES PERCENT AUTO 26 % (21-46); MONOCYTES ABSOLUTE AUTO 0.55 K/mm3 (0.16-1.47); MONOCYTES PERCENT AUTO 9 % (4-13); Mean Corpuscular HGB 30.9 pg (26.0-34.0); Mean Corpuscular HGB Conc 33.4 g/dL (31.5-36.5); Mean Corpuscular Volume 92 fL (80-100); Mean Platelet Volume 11.3 fL (9.1-12.4); NEUTROPHILS ABSOLUTE AUTO 4.09 K/mm3 (1.96-9.15); NEUTROPHILS PERCENT AUTO 64 % (41-73); Platelet Count 252 K/mm3 (150-400); RDW Coefficient Variation 14.1 % (11.7-14.2); RDW Standard Deviation 47.2 fL (35.1-46.3); Red Blood Cell Count 4.57 M/mm3 (3.80-5.20); White Blood Cell Count 6.44 K/mm3 (4.00-11.30)
[2020-05-20 16:33] LABS: Alanine Aminotransfer (ALT/SGP 23 U/L (12-78); Albumin, Blood 3.7 g/dL (3.4-5.0); Alk Phos 79 U/L (40-126); Anion Gap 10 mmol/L (6-16); Aspartate Aminotrans (AST/SGOT 19 U/L (12-37); Bilirubin, Total 0.6 mg/dL (0.1-1.0); Blood Urea Nitrogen 24 mg/dL (8-24); Bun/Creatinine Ratio 38.7 (12.0-20.0); CO2, Blood 27 mmol/L (21-32); Calcium, Blood 9.5 mg/dL (8.5-10.1); Chloride, Blood 102 mmol/L (98-108); Creatinine, Blood 0.62 mg/dL (0.40-1.00); Globulin, Blood 3.8 g/dL (2.2-4.0); Glomerular Filtration Rate >60 (60-); Glucose, Blood 103 mg/dL (70-99); Sodium, Blood 139 mmol/L (136-145); Total Protein, Blood 7.5 g/dL (6.4-8.2)
== END | disposition home or self-care (01) ==
LOC: LAB EV 16:16 → LAB SHORT 16:16
PROVIDERS: Physician Assistant
DX: R10.9 Unspecified abdominal pain (principal)
CPT/HCPCS: 80053; 85025

== ENCOUNTER → 2020-06-10 | Outpatient (CLI) | payer MEDICARE, OTHER ==
[~2020-06-10] MED LIST changes: +Miralax17 GM PO
[2020-06-10 12:29] LABS: BASOPHILS ABSOLUTE AUTO 0.03 K/mm3 (0.00-0.23); BASOPHILS PERCENT AUTO 0 % (0-2); EOSINOPHILS ABSOLUTE AUTO 0.08 K/mm3 (0.00-0.68); EOSINOPHILS PERCENT AUTO 1 % (0-6); Hematocrit 43.4 % (33.0-51.0); Hemoglobin 14.5 g/dL (11.5-16.0); IMMATURE GRAN ABSOLUTE AUTO 0.02 K/mm3 (0.00-0.10); IMMATURE GRAN PERCENT AUTO 0 % (0-1); LYMPHOCYTES ABSOLUTE AUTO 2.39 K/mm3 (0.84-5.20); LYMPHOCYTES PERCENT AUTO 31 % (21-46); MONOCYTES PERCENT AUTO 8 % (4-13); Mean Corpuscular HGB 30.7 pg (26.0-34.0); Mean Corpuscular HGB Conc 33.4 g/dL (31.5-36.5); Mean Corpuscular Volume 92 fL (80-100); Mean Platelet Volume 11.4 fL (9.1-12.4); NEUTROPHILS ABSOLUTE AUTO 4.55 K/mm3 (1.96-9.15); NEUTROPHILS PERCENT AUTO 59 % (41-73); Platelet Count 231 K/mm3 (150-400); RDW Standard Deviation 47.5 fL (35.1-46.3); Red Blood Cell Count 4.73 M/mm3 (3.80-5.20); White Blood Cell Count 7.67 K/mm3 (4.00-11.30)
[2020-06-10 12:36] LABS: Alanine Aminotransfer (ALT/SGP 18 U/L (12-78); Albumin/Globulin Ratio 1.1 (0.8-1.8); Alk Phos 80 U/L (40-126); Anion Gap 10 mmol/L (6-16); Aspartate Aminotrans (AST/SGOT 14 U/L (12-37); Bilirubin, Total 0.5 mg/dL (0.1-1.0); Blood Urea Nitrogen 16 mg/dL (8-24); Bun/Creatinine Ratio 28.1 (12.0-20.0); CO2, Blood 27 mmol/L (21-32); Calcium, Blood 9.4 mg/dL (8.5-10.1); Chloride, Blood 103 mmol/L (98-108); Creatinine, Blood 0.57 mg/dL (0.40-1.00); Globulin, Blood 3.5 g/dL (2.2-4.0); Glomerular Filtration Rate >60 (60-); Glucose, Blood 102 mg/dL (70-99); Potassium, Blood 4.1 mmol/L (3.5-5.5); Sodium, Blood 140 mmol/L (136-145); Total Protein, Blood 7.5 g/dL (6.4-8.2)
== END | disposition home or self-care (01) ==
LOC: LAB SHORT 12:18 → LAB EV 12:18
PROVIDERS: General Practice
DX: E86.0 Dehydration (principal)
CPT/HCPCS: 80053; 83690; 85025

== ENCOUNTER 2020-06-19 15:15 | Emergency (ER) | payer MEDICARE, OTHER ==
[~2020-06-19] VITALS: Ht 157.5 cm; Wt 38.6 kg
[~2020-06-19 15:15] MED LIST changes: -Miralax17 GM PO
[2020-06-19 16:19] LABS: Source, Urine Clean Catch
[2020-06-19 16:25] LABS: Appearance, Urine Clear (Clear); Bilirubin, Urine Neg (Neg); Blood, Urine 1+ (Neg); Color, Urine Yellow (P-Yellow); Glucose Qualitative, Urine Neg (Neg); Ketones, Urine 2+ (Neg); Leukocyte Esterase, Urine 1+ (Neg); Nitrite, Urine Neg (Neg); Protein, Urine 2+ (Neg); Urobilinogen, Urine NORM (Normal)
[2020-06-19 16:38] LABS: BASOPHILS ABSOLUTE AUTO 0.04 K/mm3 (0.00-0.23); BASOPHILS PERCENT AUTO 1 % (0-2); EOSINOPHILS ABSOLUTE AUTO 0.08 K/mm3 (0.00-0.68); EOSINOPHILS PERCENT AUTO 1 % (0-6); Hematocrit 43.6 % (33.0-51.0); Hemoglobin 14.3 g/dL (11.5-16.0); IMMATURE GRAN ABSOLUTE AUTO 0.01 K/mm3 (0.00-0.10); IMMATURE GRAN PERCENT AUTO 0 % (0-1); LYMPHOCYTES PERCENT AUTO 23 % (21-46); MONOCYTES ABSOLUTE AUTO 0.67 K/mm3 (0.16-1.47); MONOCYTES PERCENT AUTO 8 % (4-13); Mean Corpuscular HGB 30.4 pg (26.0-34.0); Mean Corpuscular HGB Conc 32.8 g/dL (31.5-36.5); Mean Corpuscular Volume 93 fL (80-100); Mean Platelet Volume 11.8 fL (9.1-12.4); NEUTROPHILS ABSOLUTE AUTO 5.43 K/mm3 (1.96-9.15); NEUTROPHILS PERCENT AUTO 67 % (41-73); Platelet Count 231 K/mm3 (150-400); RDW Coefficient Variation 13.6 % (11.7-14.2); RDW Standard Deviation 46.1 fL (35.1-46.3); Red Blood Cell Count 4.71 M/mm3 (3.80-5.20); White Blood Cell Count 8.13 K/mm3 (4.00-11.30)
[2020-06-19 16:49] LABS: Alanine Aminotransfer (ALT/SGP 12 U/L (12-78); Albumin, Blood 3.8 g/dL (3.4-5.0); Albumin/Globulin Ratio 1.2 (0.8-1.8); Alk Phos 67 U/L (50-136); Anion Gap 6 mmol/L (6-16); Aspartate Aminotrans (AST/SGOT 20 U/L (12-37); Bilirubin, Total 0.6 mg/dL (0.1-1.0); Blood Urea Nitrogen 16 mg/dL (8-24); Bun/Creatinine Ratio 26.6 (12.0-20.0); CO2, Blood 25 mmol/L (21-32); Calcium, Blood 9.6 mg/dL (8.5-10.1); Chloride, Blood 109 mmol/L (98-108); Globulin, Blood 3.3 g/dL (2.2-4.0); Glomerular Filtration Rate >60 (60-); Glucose, Blood 105 mg/dL (70-99); Potassium, Blood 4.3 mmol/L (3.5-5.5); Sodium, Blood 140 mmol/L (136-145); Total Protein, Blood 7.1 g/dL (6.4-8.2)
[2020-06-19 17:02] LABS: Bacteria Rare /hpf; Mucus Light (0-Heavy); Red Blood Cells, Urine 0-2 /hpf (0-2); Squamous Epithelial Cells Rare /hpf (Few); White Blood Cells, Urine 0-2 /hpf (0-5)
[2020-06-19] MEDS ORDERED: Miralax17 GM PO (18:28)
[2020-06-19] MEDS ORDERED: PROM25 PO (18:28)
== END 2020-06-19 18:52 | disposition home or self-care (01) ==
LOC: ER 15:15
PROVIDERS: Physician Assistant
DX: K59.00 Constipation, unspecified (principal)
CPT/HCPCS: 36415; 80053; 81001; 83690; 85025; 87086; 93005; 93010; 99284-25

== ENCOUNTER 2022-09-21 15:32 | Emergency (ER) | payer MEDICARE, OTHER ==
[~2022-09-21] VITALS: Ht 154.9 cm; Wt 44.5 kg
[~2022-09-21 15:32] MED LIST changes: +Miralax17 GM PO
[2022-09-21] MEDS ORDERED: Ultram50 MG PO (16:16)
== END 2022-09-21 17:30 | disposition home or self-care (01) ==
LOC: ER 15:32
DX: S39.012A Strain of muscle, fascia and tendon of lower back, initial encounter (principal); M62.830 Muscle spasm of back; W19.XXXA Unspecified fall, initial encounter; Z79.899 Other long term (current) drug therapy
CPT/HCPCS: 99284

== ENCOUNTER 2022-09-26 10:49 | Observation (INO) | payer MEDICARE, OTHER ==
[~2022-09-26] VITALS: Ht 152.4 cm; Wt 41.1 kg
[~2022-09-26 10:49] MED LIST changes: +Ultram50 MG PO
[2022-09-26 11:41] LABS: Hematocrit 30.7 % (33.0-51.0); Mean Corpuscular HGB 34.9 pg (26.0-34.0); Mean Corpuscular HGB Conc 35.8 g/dL (31.5-36.5); Mean Corpuscular Volume 98 fL (80-100); Mean Platelet Volume 10.3 fL (9.1-12.4); NRBC ABSOLUTE 0.02 K/mm3 (0.00-0.02); NRBC Auto 0.1 /100 WBC (0.0-0.2); Platelet Count 147 K/mm3 (150-400); RDW Coefficient Variation 14.6 % (11.7-14.2); RDW Standard Deviation 51.8 fL (35.1-46.3); Red Blood Cell Count 3.15 M/mm3 (3.80-5.20); White Blood Cell Count 28.25 K/mm3 (4.00-11.30)
[2022-09-26 11:54] LABS: Albumin, Blood 3.2 g/dL (3.4-5.0); Albumin/Globulin Ratio 0.7 (0.8-1.8); Bilirubin, Total 0.5 mg/dL (0.1-1.0); Bun/Creatinine Ratio 29.2 (12.0-20.0); Calcium, Blood 11.7 mg/dL (8.5-10.1); Creatinine, Blood 2.16 mg/dL (0.40-1.00); Globulin, Blood 4.6 g/dL (2.2-4.0); Total Protein, Blood 7.8 g/dL (6.4-8.2)
[2022-09-26 12:20] LABS: Source, Urine Voided
[2022-09-26 12:28] LABS: Appearance, Urine Clear (Clear); Bilirubin, Urine Neg (Neg); Blood, Urine 3+ (Neg); Color, Urine Yellow (P-Yellow); Glucose Qualitative, Urine Neg (Neg); Ketones, Urine Neg (Neg); Leukocyte Esterase, Urine Neg (Neg); Nitrite, Urine Neg (Neg); Protein, Urine 3+ (Neg); Specific Gravity, Urine 1.025 (1.003-1.022); Urobilinogen, Urine NORM (Normal)
[2022-09-26 12:37] LABS: BAND PERCENT MAN 1 % (0-8); BASOPHILS PERCENT MAN 0 % (0-2); EOSINOPHILS PERCENT MAN 0 % (0-6); LYMPHOCYTES ABSOLUTE MAN 18.92 K/mm3 (0.84-5.20); LYMPHOCYTES PERCENT MAN 67 % (21-46); MONOCYTES ABSOLUTE MAN 2.26 K/mm3 (0.16-1.47); MONOCYTES PERCENT MAN 8 % (4-13); NEUTROPHILS ABSOLUTE MAN 7.06 K/mm3 (1.96-9.15); SEG NEUTROPHILS PERCENT MAN 24 % (41-73); TOTAL CELLS COUNTED 100
[2022-09-26 12:48] LABS: White Blood Cells, Urine Not Seen /hpf (0-5)
[2022-09-26 12:49] LABS: Bacteria Rare /hpf; Red Blood Cells, Urine 0-2 /hpf (0-2); Squamous Epithelial Cells Rare /hpf (Few)
--- NOTE | 2022-09-26 20:21 | NUR ---
PT ARRIVED TO UNIT AT 1947 FROM ED VIA [facility]. ADMIT FOR COMFORT CARE WITH HOSPICE REFERRAL. IMMEDIATELY ADMINISTERED PRN IV PAIN MED. PT REQUESTING BED TO BE LAID FLAT AND TO STAY LYING FLAT ON BACK D/T BACK PAIN. GOAL OF MAINTAINING COMFORT.
--- NOTE | 2022-09-27 06:45 | NUR ---
DRUG DISCOVERY INFORMATICS SPECIALIST SUMMARY: A&Ox4. SHE IS ESSENTIALLY IMMOBILE D/T BACK PAIN AND HAS DECLINED ANY TURNS OR READJUSTMENTS. PREFERS TO LIE FLAT ON HER BACK D/T BACK PAIN. MEDICATED x3 PRN PAIN MEDS. DISCUSSED IMPORTANCE OF SKIN INTEGRITY IN THIS COMFORT CARE PATIENT BUT SHE DECLINED TURNS. HOSPICE REFERRAL ORDERED BY ADMITTING PROVIDER. WILL REPORT TO ONCOMING RN.
--- NOTE | 2022-09-27 11:21 | NUR ---
Comfort Care Visit Pt resting in bed with her eyes closed. Pt appears comfortable with no S/S of distress at this time. Pt remained with her eyes closed throughout visit. Pt's , Pt's daughter, and son in law at bedside. Offered therapeutic listening as reports being in shock over diagnosis. He reports thinking her pain was caused by chronic back issues. Continued therapeutic listening. Engaged in therapeutic discussion regarding hospice. Educated on hospice philosophy with V/U made by family. Discussed hospice agencies to choose from. Contined therapeutic listening. Family will discuss further regarding their hospice preference. Spoke with CITLALLI Lisa and discussed case. Spoke with Dr Rodriguez and discussed case. Placed order for Snell Catheter for comfort per V/O from Dr Rodriguez. Dr Rodriguez has also ordered Fentanyl Patch. Palliative Care will remain available.
--- NOTE | 2022-09-27 14:02 | NUR ---
Spiritual care visit conducted. Patient is lying in bed and asleep. Her SO Rishi is bedside. He explains about the sudden decline in patient's health and the shock of her new diagnosis/prognosis. Rishi tells me about their Jehovah Witness Karla and the solid family and religious support that they have. Rishi does open up about his mental and emotional struggles as he processes her illness and fastly approaching demise. He is very tearful at times. I hug Rishi and provide therapeutic listening and gentle crisis counselor. Patient's dtr and SinL arrive and so I step out to allow them time to talk.
--- NOTE | 2022-09-27 14:37 | NUR ---
LATE ENTRY/F/C PLACED 1200: PER MD ORDER 14FR F/C PLACED WITH IMMEDIATE RETURN OF 600 MLS CLEAR LIGHT YELLOW URINE. PT MICHAEL WELL.
--- NOTE | 2022-09-27 18:29 | NUR ---
SHIFT SUMMARY PT C/O PAIN IN BACK & HIPS WITH ANY MOVEMENT. ASKS NOT TO BE MOVED. GRIMACES WITH ALL ATTEMPTS TO MOVE OR REPOSITION HER. MEDICATED PER EMAR. , DTR & POOJA IN ROOM. PT IS COMFORT CARE AND PLAN IS HOME WITH HOSPICE. PALLIATIVE CARE NURSE IN TO S/W FAMILY. F/C REMAINS INTACT & PATENT. FENTANYL PATCH PLACED ON L UPPER ARM. IS EFFECTIVE FOR 72 HRS. NO BM TODAY. PT NOT EATING.
--- NOTE | 2022-09-28 07:26 | NUR ---
PATIENT ALERT BUT LETHARGIC, ROOM AIR, NO TELE, TWO PIV'S IN PLACE, PATIENT FOLLOWS COMMANDS AND IS VERY PLEASANT, PATIENT WILL TAKE MEDICATIONS WITH APPLESAUCE AND WATER, LIKES ICE CHIPS, FERRERA IN PLACE, PALLIATIVE ON CASE, POSSIBLE D/C HOME WITH HOSPICE TODAY
--- NOTE | 2022-09-28 12:16 | NUR ---
Comfort Care Visit Pt resting in bed with her eyes closed. Pt appears comfortable with no S/S of distress at this time. Pt's daughter and son in law at bedside. Offered supportive visit and answered questions. Daughter reports spouse will be visiting this afternoon and will let staff know of hospice preference. Family reports no new concerns at this time. Spoke with Primary RN Paulo and discussed case. Palliative Care will remain available
--- NOTE | 2022-09-28 17:48 | NUR ---
SHIFT SUMMARY PT REMAINS ON COMFORT CARE. MEDICATED THROUGHOUT SHIFT FOR BREAKTHROUGH PAIN, ONCE WITH ORAL MEDS & ONCE WITH IV MEDS, WITH GOOD RELIEF. PT NO LONGER SWALLOWING ORAL MEDS. FENTYNL PATCH REMAINS ON L SHOULDER. RE-POSITIONED WITH PILLOWS Q 2-3 HRS. UO IS MARGINAL. PT HAS REMAINED MINIMALLY RESPONSIVE WITH BARELY DISCERNABLE NODS OF HER HEAD YES OR NO TO QUESTIONS ASKED. WON'T OPEN HER EYES. PLAN IS HOME WITH HOSPICE. DEFECTIVE CIGARETTE SLITTER WORKING ON ARRANGEMENTS WITH AGENCY AND FAMILY. POSSIBLY HOME WITH HOSPICE TOMORROW.
--- NOTE | 2022-09-29 07:31 | NUR ---
PATIENT LETHARGIC BUT DOES WAKE WHEN REPOSITIONED, PATIENT GRIMACES AND MOANS IN PAIN, MEDICATED PER EMAR, PATIENT HOME WITH [facility] TODAY
--- NOTE | 2022-09-29 13:45 | NUR ---
DISCHARGE-1315 PT LEFT VIA TRANSPORT. ALL BELONGINGS WITH PT. ALL PAPERWORK SIGNED FOR DC.
== END 2022-09-29 13:20 | disposition hospice, home (50) ==
LOC: ER 10:49 → MEDS 17:18
PROVIDERS: Emergency Medicine; ADMIT Family Medicine
DX: D72.829 Elevated white blood cell count, unspecified (principal); Z66 Do not resuscitate; M54.9 Dorsalgia, unspecified; R63.4 Abnormal weight loss; Z51.5 Encounter for palliative care
CPT/HCPCS: 72148; 72157; 80053; 81001; 85025; 87086; 96374-59; 96375; 96375-59; 96376; 99285-25; A9270; A9579; G0378; J2060; J2270; J2405